=== PATIENT | male | born 1945 | race Caucasian/White ===

== ENCOUNTER 2018-01-10 10:02 | Emergency (ER) | payer OTHER ==
[~2018-01-10] VITALS: Ht 170.2 cm; Wt 82.6 kg
[~2018-01-10 10:02] MED LIST: Aspirin Chewable PO; Children's Advil Sus PO; FLOMAX0.4 MG PO; FLOURIDE PO; Flomax PO; LIPITOR40 MG PO; LO-DOSE ASPIRIN81 M1 PO; MULTIVITAMIN1 EAC2 PO; NEXIUM40 MG PO; PROTONIX40 MG PO; PYRIDIUM200 MG PO; Sodium Chloride PO; VITAMIN D3400 UNI1 PO
[2018-01-10 11:43] LABS: HEMATOCRIT 40.2 % (38.0-50.0); HEMOGLOBIN 13.9 G/DL (12.5-16.6); MCH 31.1 PG (29.0-34.0); MCHC 34.6 G/DL (30.0-36.0); MCV 89.9 FL (86-99); PLATELET COUNT 309 K/uL (156-360); RBC DIS.WIDTH-CV 13.2 % (11.8-14.6); RBC DIS.WIDTH-SD 43.7 % (39-53); RED BLOOD COUNT 4.47 M/uL (4.00-5.50); WHITE BLOOD COUNT 11.6 K/uL (4.1-10.2)
[2018-01-10 11:54] LABS: ALBUMIN 4.6 g/dL (3.2-4.8); CHLORIDE 103 mEq/L (99-109); D-DIMER ELISA < 150.00 ng/mLDDU (<230); POTASSIUM 4.7 mEq/L (3.7-5.4); SODIUM 136 mEq/L (136-147)
[2018-01-10 11:55] LABS: MAGNESIUM 2.5 mg/dL (1.3-2.7); PTT 28.3 SEC (25-37)
[2018-01-10 11:56] LABS: GLUCOSE 111 mg/dL (70-99)
[2018-01-10 11:57] LABS: TOTAL PROTEIN 7.2 g/dL (6.4-8.3)
[2018-01-10 11:58] LABS: TOTAL BILIRUBIN 0.6 mg/dL (0.0-1.0)
[2018-01-10 12:00] LABS: ALKALINE PHOSPHATASE 78 IU/L (3-129); GFR ESTIMATE (CALCULATED) > 59 mL/min/ (58.99-99999)
[2018-01-10 12:01] LABS: UREA NITROGEN (BUN) 14 mg/dL (9-23)
[2018-01-10 12:02] LABS: AST (GOT) 23 IU/L (2-34)
[2018-01-10 12:03] LABS: ALT (GPT) 24 IU/L (3-49)
[2018-01-10 12:05] LABS: TROP-I INTERPRETATION NEGATIVE; TROPONIN-I < 0.01 ng/mL (0.0-0.30)
[2018-01-10] MEDS ORDERED: ATIVAN0.5 MG PO (14:01)
[2018-01-10 14:30] VITALS: BP 110/70
== END 2018-01-10 14:31 | disposition home or self-care (01) ==
LOC: EME 10:02
PROVIDERS: Nurse Practitioner Family
DX: E86.0 Dehydration (principal); F41.9 Anxiety disorder, unspecified; R25.1 Tremor, unspecified; R42 Dizziness and giddiness; R43.9 Unspecified disturbances of smell and taste; R00.0 Tachycardia, unspecified; I70.0 Atherosclerosis of aorta; D35.2 Benign neoplasm of pituitary gland; E78.5 Hyperlipidemia, unspecified; Z79.82 Long term (current) use of aspirin
CPT/HCPCS: 71046; 80053; 82306; 83735; 84484; 85027; 85379; 85610; 85730; 93005; 99281; 99284; J2060; J7030

== ENCOUNTER 2018-01-17 14:48 | Emergency (ER) | payer OTHER ==
[~2018-01-17] VITALS: Ht 170.2 cm; Wt 82.2 kg
[~2018-01-17 14:48] MED LIST changes: +ATIVAN0.5 MG PO
[2018-01-17] MEDS ORDERED: XANAX0.5 MG PO (18:50)
[2018-01-17 19:15] VITALS: BP 146/97
== END 2018-01-17 20:08 | disposition home or self-care (01) ==
LOC: EME 14:48
DX: G20 Parkinson's disease (principal); D35.2 Benign neoplasm of pituitary gland; E78.5 Hyperlipidemia, unspecified; F41.9 Anxiety disorder, unspecified; K21.9 Gastro-esophageal reflux disease without esophagitis; N40.0 Benign prostatic hyperplasia without lower urinary tract symptoms; Z79.82 Long term (current) use of aspirin; Z88.0 Allergy status to penicillin
CPT/HCPCS: 99281; 99284

== ENCOUNTER → 2018-02-04 | Outpatient (CLI) | payer OTHER ==
[~2018-02-04] MED LIST changes: +XANAX0.5 MG PO
== END | disposition home or self-care (01) ==
LOC: NUC 08:29
DX: G20 Parkinson's disease (principal)
CPT/HCPCS: 78607; A9584

== ENCOUNTER 2018-02-13 18:12 | Observation (INO) | payer OTHER ==
[~2018-02-13] VITALS: Ht 170.2 cm; Wt 65.9 kg
[2018-02-13 19:53] LABS: HEMATOCRIT 38.2 % (38.0-50.0); HEMOGLOBIN 13.8 G/DL (12.5-16.6); MCH 31.2 PG (29.0-34.0); MCHC 36.1 G/DL (30.0-36.0); MCV 86.2 FL (86-99); PLATELET COUNT 286 K/uL (156-360); RBC DIS.WIDTH-CV 12.9 % (11.8-14.6); RBC DIS.WIDTH-SD 40.4 % (39-53); RED BLOOD COUNT 4.43 M/uL (4.00-5.50); WHITE BLOOD COUNT 9.9 K/uL (4.1-10.2)
[2018-02-13 20:09] LABS: ALBUMIN 4.2 g/dL (3.2-4.8); CHLORIDE 106 mEq/L (99-109); POTASSIUM 3.9 mEq/L (3.7-5.4); SODIUM 140 mEq/L (136-147)
[2018-02-13 20:11] LABS: GLUCOSE 118 mg/dL (70-99); TOTAL PROTEIN 6.9 g/dL (6.4-8.3)
[2018-02-13 20:13] LABS: TOTAL BILIRUBIN 0.8 mg/dL (0.0-1.0)
[2018-02-13 20:14] LABS: SERUM ETHYL ALCOHOL < 10 mg/dL
[2018-02-13 20:15] LABS: ALKALINE PHOSPHATASE 77 IU/L (3-129); CREATININE 1.1 mg/dL (0.6-1.3); GFR ESTIMATE (CALCULATED) > 59 mL/min/ (58.99-99999); TROP-I INTERPRETATION NEGATIVE; TROPONIN-I < 0.01 ng/mL (0.0-0.30)
[2018-02-13 20:16] LABS: UREA NITROGEN (BUN) 13 mg/dL (9-23)
[2018-02-13 20:17] LABS: AST (GOT) 19 IU/L (2-34)
[2018-02-13 20:18] LABS: ALT (GPT) 22 IU/L (3-49); CREATINE KINASE 59 IU/L (1-294)
[2018-02-13 20:21] LABS: APPEARANCE CLEAR ((CLEAR)); BILIRUBIN NEGATIVE; BLOOD NEGATIVE; COLOR YELLOW ((YELLOW)); GLUCOSE (STRIP) NEGATIVE; KETONES NEGATIVE; LEUKOCYTES NEGATIVE; NITRITE NEGATIVE; PROTEIN (STRIP) NEGATIVE; SPECIFIC GRAVITY 1.005 (1.000-1.030); UROBILINOGEN 0.2 MG/DL (0.2-1.0)
[2018-02-13 20:24] LABS: ERTH.SED.RATE 11 MM/HR (0-20)
[2018-02-13 21:00] LABS: AMPHETAMINE NEGATIVE (500 ng/mL); BARBITURATES NEGATIVE (200 ng/mL); BENZODIAZEPINES PRESUMPTIVE POSITIVE (150 ng/mL); BUPRENORPHINE NEGATIVE (10 ng/mL); COCAINE NEGATIVE (150 ng/mL); METHADONE NEGATIVE (200 ng/mL); METHAMPHETAMINE NEGATIVE (500 ng/mL); OPIATES (MORPHINE) NEGATIVE (100 ng/mL); OXYCODONE NEGATIVE (100 ng/mL); PHENCYCLIDINE NEGATIVE (25 ng/mL); PROPOXYPHENE NEGATIVE (300 ng/mL); THC CANNABINOIDS NEGATIVE (50 ng/mL); TRICYCLIC ANTIDEPRESSANTS NEGATIVE (300 ng/mL)
[2018-02-13 21:09] LABS: THYROTROPIN (TSH) 1.3 MIU/L (0.4-5.5)
[2018-02-13 21:15] LABS: HIGH-SENS C-REACTIVE PROTEIN 0.09 MG/DL (0.02-0.20)
[2018-02-13 21:34] LABS: BENZODIAZEPINES, URINE SCREEN POSITIVE (200 ng/mL)
[2018-02-13] MEDS ORDERED: XANAX0.25 MG PO (22:42)
[2018-02-13] MEDS ORDERED: MIRALAX17 GM PO (22:43)
[2018-02-13] MEDS ORDERED: ANTI-NAUSEA GI1 EACH PO (22:43)
[2018-02-13] MEDS ORDERED: ANTIVERT25 MG PO (22:44)
[2018-02-13] MEDS ORDERED: SENNA8.6 MG PO (22:44)
[2018-02-13] MEDS ORDERED: SINEMET 25-1001 EACH PO (22:44)
[2018-02-13] MEDS ORDERED: DULCOLAX5 MG PO (22:44)
[2018-02-14 01:06] VITALS: BP 152/80
[2018-02-14 07:59] VITALS: BP 173/77
[2018-02-14 10:44] LABS: FOLIC ACID (FOLATE) 14.3 NG/ML (5.0-22.0)
[2018-02-14 11:24] LABS: TREPONEMA ANTIBODY NEGATIVE (NEGATIVE)
[2018-02-14 11:45] VITALS: BP 147/81
[2018-02-14 15:42] VITALS: BP 116/64
[2018-02-14 23:30] VITALS: BP 144/83
[2018-02-15 05:29] LABS: HEMATOCRIT 36.6 % (38.0-50.0); HEMOGLOBIN 12.3 G/DL (12.5-16.6); MCH 30.1 PG (29.0-34.0); MCHC 33.6 G/DL (30.0-36.0); MCV 89.7 FL (86-99); PLATELET COUNT 280 K/uL (156-360); RBC DIS.WIDTH-CV 13.3 % (11.8-14.6); RBC DIS.WIDTH-SD 43.8 % (39-53); RED BLOOD COUNT 4.08 M/uL (4.00-5.50); WHITE BLOOD COUNT 7.4 K/uL (4.1-10.2)
[2018-02-15 06:40] LABS: CHLORIDE 107 MEQ/L (99-109); CREATININE 0.9 MG/DL (0.6-1.3); GFR ESTIMATE (CALCULATED) > 59 mL/min/ (58.99-99999); GLUCOSE 90 mg/dL (70-99); POTASSIUM 3.7 MEQ/L (3.7-5.4); SODIUM 139 MEQ/L (136-147); UREA NITROGEN (BUN) 12 mg/dL (9-23)
[2018-02-15 07:23] VITALS: BP 127/74
[2018-02-15 11:15] VITALS: BP 118/76
[2018-02-15 15:56] VITALS: BP 121/68
[2018-02-15 19:46] VITALS: BP 93/59
[2018-02-15 23:41] VITALS: BP 175/81
[2018-02-16 05:37] VITALS: BP 159/75
[2018-02-16 07:21] VITALS: BP 168/87
[2018-02-16 11:04] LABS: ANTI-DOUBLE STRANDED DNA 33 U/mL (0-99)
[2018-02-16 11:44] VITALS: BP 160/78
[2018-02-16] MEDS ORDERED: QUETIAPINE FUMA50 MG PO (12:59)
[2018-02-16] MEDS ORDERED: EXELON1.5 MG PO (12:59)
[2018-02-16] MEDS ORDERED: SEROQUEL12.5 MG PO (13:04)
[2018-02-16] MEDS ORDERED: ZOLPIDEM TARTRAT5 MG PO (13:05)
[2018-02-16] MEDS ORDERED: ATIVAN0.5 MG PO (13:05)
== END 2018-02-16 15:44 | disposition home or self-care (01) ==
LOC: EME 18:12 → 4SOUTH 22:41 → EDOF 22:41 → ENRESERV 22:45 → 5WEST 02-14 00:24 → ENRESERV 02-14 00:32 → 4SOUTH 02-14 00:35
PROVIDERS: Emergency Medicine; Hospitalist; Physician Assistant Medical; Specialist
DX: R41.0 Disorientation, unspecified (principal); F43.21 Adjustment disorder with depressed mood; G20 Parkinson's disease; F02.80 Dementia in other diseases classified elsewhere, unspecified severity, without behavioral disturbance, psychotic disturbance, mood disturbance, and anxiety; I10 Essential (primary) hypertension; K21.9 Gastro-esophageal reflux disease without esophagitis; Z86.39 Personal history of other endocrine, nutritional and metabolic disease; Z85.820 Personal history of malignant melanoma of skin; Z85.46 Personal history of malignant neoplasm of prostate; Z92.3 Personal history of irradiation; E78.5 Hyperlipidemia, unspecified; R44.1 Visual hallucinations; Z88.0 Allergy status to penicillin; Z91.010 Allergy to peanuts; Z91.013 Allergy to seafood; Z91.018 Allergy to other foods
CPT/HCPCS: 70551; 71045; 71250; 74176; 80048; 80053; 81003; 82550; 82607; 82746; 84443; 84484; 84999; 85027; 85651; 86038; 86141; 86235; 86780; 87502; 93005; 95819; 99281; 99285; G0378; G0480; G8978 GP CK; G8979 CJ; G8980 GP CK; G8987 CK; G8988 CI; G8989 GO CK; J1644; J2060; J7030